=== PATIENT | male | born 1990 | race African-American/Black ===

== ENCOUNTER 2021-08-20 01:36 | Emergency (ER) | payer OTHER ==
[2021-08-20 02:00] VITALS: BP 125/67; PULSE 71; TEMP 97.6; BMI 21.7
[2021-08-20] MEDS ORDERED: FAMOTIDINE 20 MG/50 ML IVPB 20 MG/50 ML MG IVPB ONE ×3 (02:46→03:28)
[2021-08-20] MEDS ORDERED: MAG HYDROX/AL HYDROX/SIMETH -MYLANTA- ORAL SUSPENSION PO ONE (02:48)
[2021-08-20] MEDS ORDERED: SUCRALFATE 1 GM TABLET (FP) PO ONE (02:49)
[2021-08-20] MEDS ORDERED: SUCRALFATE 1 GM TABLET (FP) ONE (02:53)
[2021-08-20] MEDS ORDERED: MAG HYDROX/AL HYDROX/SIMETH 30 ML UNIT-DOSE CUP ONE (02:53)
[2021-08-20 03:16] LABS: BASO % 1.1 % (0-2.0); EOS % 2.8 % (0-4.5); HEMATOCRIT 44.8 % (35.4-49); HEMOGLOBIN 14.8 GM/dL (11.7-16.9); LYMPH % 43.2 % (8-40); MCH 27.3 pg (25.7-33.7); MEAN CELL VOLUME 82.7 fl (80-96); MONO % 14.4 % (3.8-10.2); NEUT % 38.5 % (42.8-82.8); PLATELET COUNT 203 10^3/uL (134-434); RBC 5.42 M/mm3 (4.00-5.60); RDW 14.3 % (11.9-15.9); WHITE BLOOD COUNT 3.8 K/mm3 (4.0-10.0)
[2021-08-20 03:36] LABS: CHLORIDE 103 mmol/L (98-107); SODIUM 139 mmol/L (136-145)
[2021-08-20 03:38] LABS: CALCIUM 9.4 mg/dL (8.5-10.1)
[2021-08-20 03:39] LABS: ANION GAP 7 MMOL/L (8-16); BLOOD UREA NITROGEN 13.2 mg/dL (7-18); CO2 29 mmol/L (21-32); GLUCOSE,RANDOM 94 mg/dL (74-106)
[2021-08-20 03:42] LABS: CREATININE 0.9 mg/dL (0.55-1.3); SGOT/AST 19 U/L (15-37); SGPT/ALT 53 U/L (13-61)
[2021-08-20 03:43] LABS: BILIRUBIN,TOTAL 0.3 mg/dL (0.2-1)
[2021-08-20 03:44] LABS: TOT PROT 7.7 g/dl (6.4-8.2)
[2021-08-20 03:45] LABS: ALK PHOS 48 U/L (45-117)
[2021-08-20 03:49] LABS: LIPASE 165 U/L (73-393)
== END 2021-08-20 04:05 | disposition home or self-care (01) ==
LOC: JER 01:36
PROC: 3E033NZ Introduction of Analgesics, Hypnotics, Sedatives into Peripheral Vein, Percutaneous Approach (ICD-10-PCS; principal; 2021-08-20)
DX: K21.9 Gastro-esophageal reflux disease without esophagitis (principal)
CPT/HCPCS: 36415; 71046-TC-FY; 80053; 82550; 82553; 83690; 84484; 85025; 93005; 93010; 99284-25

== ENCOUNTER 2022-03-04 02:22 | Emergency (ER) | payer OTHER ==
[2022-03-04 02:29] VITALS: BP 106/69; PULSE 113; TEMP 97.6; BMI 23.7
[2022-03-04] MEDS ORDERED: FAMOTIDINE 10 MG TABLET PO ONE (03:55)
[2022-03-04] MEDS ORDERED: ONDANSETRON *ODT* 4 MG TABLET SL ONE (03:55)
[2022-03-04] MEDS ORDERED: MAG HYDROX/AL HYDROX/SIMETH -MYLANTA- ORAL SUSPENSION PO ONE (03:55)
[2022-03-04] MEDS ORDERED: FAMOTIDINE 20 MG TABLET ONE (03:57)
[2022-03-04] MEDS ORDERED: MAG HYDROX/AL HYDROX/SIMETH 30 ML UNIT-DOSE CUP ONE (03:57)
[2022-03-04] MEDS ORDERED: ONDANSETRON *ODT* 4 MG TABLET ONE (03:57)
== END 2022-03-04 04:30 | disposition home or self-care (01) ==
LOC: JER 02:22
DX: K21.9 Gastro-esophageal reflux disease without esophagitis (principal)
CPT/HCPCS: 99283-25; Q0162

== ENCOUNTER 2022-04-01 23:28 | Emergency (ER) | payer OTHER ==
[2022-04-01 23:38] VITALS: BP 123/78; PULSE 83; TEMP 98.1; BMI 24.1
== END 2022-04-02 00:22 | disposition left against medical advice (07) ==
LOC: JER 23:28
DX: R07.9 Chest pain, unspecified (principal)
CPT/HCPCS: 99281-25